=== PATIENT | female | born 1985 | race Caucasian/White ===

== ENCOUNTER 2021-05-10 15:39 | Emergency (ER) | payer BC ==
[~2021-05-10] VITALS: Ht 157.5 cm; Wt 74.8 kg
--- NOTE | 2021-05-10 15:45 | NUR ---
Patient to ER bed hallway to [facility] for evaluation. Side rails up. Report given to LESLIE Reinoso.
[2021-05-10 15:46] VITALS: BP_SYST 130
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
[2021-05-10] MEDS ORDERED: LIDOCAINE 1% 10 MG/ML, 20 ML MDV INJ ONE (17:15)
[2021-05-10] MEDS ORDERED: DIPH-TET-PERTUS Vaccine 0.5 ML VIAL (ADACEL) I.M. ONE (17:15)
[2021-05-10] MEDS ORDERED: IBUPROFEN 600 MG TABLET PO ONE (17:45)
--- NOTE | 2021-05-10 18:30 | NUR ---
ER DR. OLIVARES AT THE BEDSIDE EXAMINING PT
--- NOTE | 2021-05-10 18:45 | NUR ---
ER DR. OLIVARES AT THE BEDSIDE FOR SUTURE PLACEMENT, PT TOLERATING WELL
--- NOTE | 2021-05-10 19:10 | NUR ---
REPORT GIVEN TO LESLIE OZUNA FOR CONTINUING CARE
--- NOTE | 2021-05-10 19:10 | NUR ---
Received report from Arleth NELSON
[2021-05-10] MEDS ORDERED: CEPH250C PO (19:20)
--- NOTE | 2021-05-10 19:35 | NUR ---
Pt c/o increased swelling to left hand after laceration repair. + swelling, bruising noted. Dr. Epstein aware and at bedside for re- eval.
--- NOTE | 2021-05-10 19:37 | NUR ---
Pt refusing VS re-check.
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
--- NOTE | 2021-05-10 19:50 | NUR ---
EMT Adi stated the patient decided she still wants to leave and does not wan to re-suture her hand. This RN attempted to de-escalate the situation again and educate the patient regarding her options to leave vs stay. Dr. Epstein was notified of patient still wanting to leave AMA. Dr. Epstein went back to bedside to re-evaluate and educate regarding risks and benefits of leaving AMA. Pt was adamant that she wanted to leave. Pt refused all additional care and refused any additional pain medication offered by Dr. Epstein. Pt is a/o x4, and signed the AMA form. She was escorted out of the dept. Her began asking the EMT questions about the form the patient signed. Pt and were provided a copy of the AMA form. They requested to speak with the front of house manager. shuttle preparation supervisor Maria Guadalupe olivas, plant attendant Carmen also aware.
--- NOTE | 2021-05-10 20:00 | NUR ---
supervisor dry cell assembly Maria Guadalupe talking to patient and . Pt and spouse seen leaving dept.
[2021-05-10 20:05] VITALS: BP_SYST 130
== END 2021-05-10 20:05 | disposition left against medical advice (07) ==
LOC: SED 15:39
DX: S61.411A Laceration without foreign body of right hand, initial encounter (principal); Z79.899 Other long term (current) drug therapy; W45.8XXA Other foreign body or object entering through skin, initial encounter; Y93.89 Activity, other specified; Y92.89 Other specified places as the place of occurrence of the external cause; Y99.8 Other external cause status
CPT/HCPCS: 12001; 90471; 90715; 99283; J2001